=== PATIENT | male | born 1960 | race Caucasian/White ===

== ENCOUNTER → 2017-02-15 | Outpatient (CLI) | payer MEDICARE ==
--- NOTE | 2017-02-15 10:22 | CARD ---
APPROVED REPORT EXAM: Two-dimensional and M-mode echocardiogram with Doppler and color Doppler. Other Information Quality : GoodHR: 105bpm Rhythm : Atrial Fibrillation INDICATION Atrial Fibrillation 2D DIMENSIONS RVDd2.8 (2.9-3.5cm)Left Atrium(2D)4.2 (1.6-4.0cm) IVSd0.9 (0.7-1.1cm)Aortic Root(2D)2.6 (2.0-3.7cm) LVDd4.3 (3.9-5.9cm)LVOT Diameter2.4 (1.8-2.4cm) PWd0.9 (0.7-1.1cm)LVDs3.5 (2.5-4.0cm) FS (%) 18.3 %SV31.8 ml LVEF(%)38.2 (>50%) Aortic Valve LVOT Peak Trevon.66.1cm/s Mitral Valve MV E Peak Gr.4mmHgMV E Mean Gr.1mmHg Pulmonary Valve PV Peak Fggxwaek34.0cm/s Tricuspid Valve TR P. Rsomarrz917uk/sTR Peak Gr.31mmHg Pulmonary Vein S1 Fulkbiix77.1cm/s LEFT VENTRICLE The left ventricle is normal size. There is normal left ventricular wall thickness. Left ventricle sy stolic function is mildly impaired. The Ejection Fraction is 40-45%. There is mild global hypokinesis of the left ventricle. Tissue Doppler imaging reveals moderate left ventricular diastolic dysfunctio n. No left ventricle thrombus noted on this study. RIGHT VENTRICLE The right ventricle is normal size. There is normal right ventricular wall thickness. The right ventr icular systolic function is normal. ATRIA The left atrium is mildly dilated. The right atrium size is normal. The interatrial septum is intact with no evidence for an atrial septal defect or patent foramen ovale as noted on 2-D or Doppler imagi ng. AORTIC VALVE The aortic valve is mildly thickened. The aortic valve is trileaflet. Doppler and Color Flow revealed no significant aortic regurgitation. There is no significant aortic valvular stenosis. MITRAL VALVE Mitral annular calcification is mild. The mitral valve leaflets are thickened. There is no evidence o f mitral valve prolapse. There is no mitral valve stenosis. Doppler and Color Flow revealed mild mitr al regurgitation. TRICUSPID VALVE Doppler and Color Flow revealed mild tricuspid regurgitation. The pulmonary artery systolic pressure is estimated at 34 mmHg. There is mild pulmonary hypertension. PULMONIC VALVE Doppler and Color Flow revealed trace pulmonic valvular regurgitation. There is no pulmonic valvular stenosis. GREAT VESSELS The aortic root is normal in size. The ascending aorta is normal in size. The IVC is normal in size a nd collapses >50% with inspiration. PERICARDIAL EFFUSION There is no evidence of significant pericardial effusion. Critical Notification Critical Value: No <Conclusion> Left ventricle systolic function is mildly impaired. The Ejection Fraction is 40-45%. (Due to atrial fibrillation, this may be underestimated.) There is mild global hypokinesis of the left ventricle. Tissue Doppler imaging reveals moderate left ventricular diastolic dysfunction.
== END | disposition home or self-care (01) ==
LOC: ECHO 07:39
PROVIDERS: ATTEND Internal Medicine Cardiovascular Disease
DX: I48.91 Unspecified atrial fibrillation (principal); I34.0 Nonrheumatic mitral (valve) insufficiency; I27.2 Other secondary pulmonary hypertension; I07.1 Rheumatic tricuspid insufficiency
CPT/HCPCS: 93306

== ENCOUNTER 2017-03-13 09:28 | Day surgery (SDC) | payer MEDICARE ==
[~2017-03-13 09:28] MED LIST: 0.9 % SODIUM CHLORIDE 10 ML DISP.SYRIN. IV PRN; IV RINGERS,LACTATED 1000ML 1,000 ML IV SCH
[2017-03-13] MEDS ORDERED: SIMV40TA3 PO (10:51)
[2017-03-13] MEDS ORDERED: METO50TA2 PO (10:51)
[2017-03-13] MEDS ORDERED: CLON0.5T3 PO (10:51)
[2017-03-13] MEDS ORDERED: RIVA20TA2 PO (10:51)
[2017-03-13] MEDS ORDERED: HYDR-2666 PO (10:51)
--- NOTE | 2017-03-13 10:58 | EKG ---
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
[2017-03-13 11:11] LABS: CALCIUM 8.5 mg/dL (8.5-10.1); CREATININE 1.2 mg/dL (0.7-1.3); GFR 62.4; MAGNESIUM 2.1 mg/dL (1.8-2.4); POTASSIUM 4.2 mmol/L (3.5-5.1)
[2017-03-13] MEDS ORDERED: PROPOFOL 20 ML IV ONE (11:53)
--- NOTE | 2017-03-13 12:32 | EKG ---
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
[2017-03-13 13:00] VITALS: BP 112/79
--- NOTE | 2017-03-13 13:57 | PDOC4 ---
Operative Note Operative Note Cardioversion report. The patient is a 56-year-old male who was found to be in atrial fibrillation. He was initially started on beta blockers for rate control. He has been anticoagulated for more than one month. Lab testing including potassium and magnesium are within normal limits. Echocardiogram shows normal LV systolic function with mild mitral regurgitation and mild tricuspid regurgitation. Patient was seen in the office and we discussed the risks and benefits of cardioversion. The patient gave consent to an outpatient cardioversion attempt. Again this morning this was discussed the patient has agreed to proceed. The anesthesiology service provided sedation. Once the patient's appropriate level of consciousness obtained the patient was cardioverted with synchronized 250 J which converted his atrial fibrillation to a normal sinus rhythm. He awoke normally from the anesthetic. Results were discussed with the patient and his family. He'll be continued on his present medications including anticoagulation and followed up in the office in 3-4 weeks. Conclusions. Successful electrical cardioversion of atrial fibrillation to a normal sinus rhythm. BROOKLYN PAUL MD Mar 13, 2017 13:57
== END 2017-03-13 13:12 | disposition home or self-care (01) ==
LOC: SURG 09:28
PROVIDERS: ATTEND Internal Medicine Cardiovascular Disease
DX: I48.91 Unspecified atrial fibrillation (principal); I34.0 Nonrheumatic mitral (valve) insufficiency; I07.1 Rheumatic tricuspid insufficiency; E78.00 Pure hypercholesterolemia, unspecified; F41.9 Anxiety disorder, unspecified; F32.9 Major depressive disorder, single episode, unspecified
CPT/HCPCS: 36415; 80048; 83735; 92960; 93005; J2704

== ENCOUNTER → 2017-04-09 | Outpatient (CLI) | payer MEDICARE ==
[2017-03-13 13:00] VITALS: BP 112/79
[~2017-04-09] MED LIST changes: -0.9 % SODIUM CHLORIDE 10 ML DISP.SYRIN. IV PRN; +CLON0.5T3 PO; +HYDR-2666 PO; -IV RINGERS,LACTATED 1000ML 1,000 ML IV SCH; +METO50TA2 PO; +REGADENOSON 0.4 MG/5 ML DISP.SYRIN. IV ONE; +RIVA20TA2 PO; +SIMV40TA3 PO
--- NOTE | 2017-04-09 11:47 | RAD ---
APPROVED REPORT Test Type: Pharmacological Stress Nurse/Tech: Anne Marie Riojas RN Test Indications: Afib Cardiac History: see ehr Medications: see ehr Medical History: see ehr Resting ECG: Afib Resting Heart Rate: 111 bpm Resting Blood Pressure: 106/60mmHg Pretest Chest Pain: None Nurse/Tech Notes Lungs CTA, S1, S2 Consent: The procedure was explained to the patient in lay terms. Informed consent was witnessed. Pedro eout was entered into [employer]. History and Stress Test performed by Koby LeblancNJaime Pharm. Details Pharmacologic stress testing was performed using 0.4mg per 5ml of regadenoson given intravenously ove r 7-10 seconds. Stress Symptoms No chest pain or symptoms. Patient went into an Afib RVR with a drop in blood pressure. Lowest 62/3 6. Patient did not complain of dizziness and did not lose consciousness. Dr. Barros informed, ord ers to proceed with stress test protocol. POST EXERCISE Reason for Termination: Infusion complete Max HR: 180 bpm Max Blood Pressure: 119/70mmHg Blood Pressure response to exercise: Abnormal blood pressure response during stress. Chest Pain: No. Arrhythmia: No. ST Change: No. INTERPRETATION Stress EKG Conclusion: The resting EKG showed a atrial fibrillation rate [address] segm ent changes. With infusion the patient's heart rate increased to greater than 160 bpm but no further ST segment ch anges were identified. The patient became significantly tachycardic with infusion but no EKG evidence of stress-induced isch emia. Imaging Protocol IMAGE PROTOCOL: Rest Tc-99m/stress Tc-99m 1 day Rest: Stress: Viability: Radiopharm.Tc99m YgpkxxkewTw43d Sestamibi Dose11.6mCi 33.6mCi Duration 15min. 10min. Img Date 04/09/2017 04/09/2017 Inj-Img Qkyc12hcq. 45min. Rest Admin Site:IV - Left AntecubitalAdministrator:MEHUL Valencia, ARRT (R)(N) Stress Admin Site: IV - Left AntecubitalAdministrator: MEHUL Valencia, ARRT (R)(N) STRESS DATA End Diast. Vol.100.0mlAv. Heart Lvcz239.0bpm End Syst. Vol.41.0mlCO Index BSA0.0L/min Myocardial Lodn531.0gEject. Jkdmqjcl61.0% Stress Rates Pk. Fill Rate4.30EDV/secLVtime Pk. Fill 70.56msec Pk. Empty Rate4.03ESV/secLVtime Pk. Nxsxn913.27msec 1/3 Pk. Fill2.50EDV/sec Stress Scores Regional WT2.00Summed WT28.00 Regional WM0.00Summed WM11.00 LV Perfusion The stress images had a very mild anterior septal defect. The rest images had no significant defects. Nuclear images suggest a possible small area of reversible ischemia in the anterior septal region. Wall Motion Left ventricular systolic function is normal with an ejection fraction of 59%. LV Perf. Quant 17 Seg. SSS0.00 17 Seg. SRS0.00 17 Seg. SDS0.00 Stress Defect Extent (% LAD)1.90Rest Defect Extent (% LAD)0.00Rev. Defect Extent (% LAD)0.00 Stress Defect Extent (% LCX) 0.00Rest Defect Extent (% LCX)0.00Rev. Defect Extent (% LCX)0.00 Stress Defect Extent (% RCA)0.00Rest Defect Extent (% RCA)0.00Rev. Defect Extent (% RCA)0.00 Stress Defect Extent (% ANGEL)0.70Rest Defect Extent (% ANGEL)0.00Rev. Defect Extent (% ANGEL)0.00 Conclusion 1. Significant tachycardia induced by Lexiscan infusion. 2. No ST segment changes on EKG with stress. 3. Nuclear imaging shows a possible small anterior septal region of reversible ischemia. 4. Normal left ventricular systolic function with ejection fraction of 59%. 5. Moderate risk Lexiscan nuclear stress test with a probable small anterior septal area of ischemia.
== END | disposition home or self-care (01) ==
LOC: NM 07:45
PROVIDERS: ATTEND Internal Medicine Cardiovascular Disease
DX: I48.91 Unspecified atrial fibrillation (principal)
CPT/HCPCS: 78452; 93017; 96374; 96375; 96376; A9500; J2785

== ENCOUNTER 2017-07-12 06:13 | Outpatient (CLI) | payer MEDICARE ==
[2017-07-12] VITALS (9 sets, daily range): BP systolic 94–110; BP diastolic 64–84
[~2017-07-12] VITALS: Ht 182.9 cm; Wt 105.2 kg
[~2017-07-12 06:13] MED LIST changes: -HYDR-2666 PO; +HYDR-2758 PO; -REGADENOSON 0.4 MG/5 ML DISP.SYRIN. IV ONE
[2017-07-12] MEDS ORDERED: LIDOCAINE 2% 20 ML VIAL. ONE (07:14)
[2017-07-12 07:28] LABS: HEMATOCRIT 43.7 % (39.0-53.0); HEMOGLOBIN 14.6 g/dL (13.0-17.5); RED BLOOD COUNT 4.72 x10^6/uL (4.30-5.70); RED CELL DISTRIBUTION WIDTH 13.5 % (11.5-14.5); WHITE BLOOD COUNT 7.3 x10^3/uL (4.0-11.0)
[2017-07-12 07:38] LABS: INR 1.4 (0.8-1.1); PROTHROMBIN TIME PATIENT 16.5 SEC (11.7-14.0)
[2017-07-12 07:50] LABS: CALCIUM 8.3 mg/dL (8.5-10.1); CREATININE 1.2 mg/dL (0.7-1.3); GFR 62.4; POTASSIUM 3.8 mmol/L (3.5-5.1)
[2017-07-12] MEDS ORDERED: IODIXANOL 320 MG/ML 100 ML VIAL. ONE (08:34)
--- NOTE | 2017-07-12 08:35 | PDOC ---
MODERATE SEDATION ASSESSMENT RISKS/ALTERNATIVES Risks/Alternatives Risks and alternatives of this type of sedation and procedure discussed with: RISK/ALTERNATIVES: Patient H & P ON CHART H & P H & P on chart and reviewed for co-morbid conditions and appropriate labs. H&P ON CHART: Yes STATUS PREG STATUS ASSESSED: N/A MEDS/ALLERGIES REVIEWED Meds/Allergies Reviewed Medications and Allergies including time and route of recently administered narcotics and sedatives. MEDS/ALLERGIES REVIEWED: Yes ASA RATING ASA RATING: II AIRWAY ASSESSMENT Airway Assessment Airway patency, oral function limitations, presence of caps, crowns, dentures, partials, and ability to extend neck assessed. AIRWAY ASSESSMENT: Yes MALLAMPATI SCORE MALLAMPATI SCORE: II PRE-SEDATION ASSESSMENT PRE-SEDATION ASSESSMENT: Yes BROOKLYN PAUL MD Jul 12, 2017 08:35
[2017-07-12] MEDS ORDERED: NITROGLYCERIN 200 MCG/2 ML SYRINGE FOR CATH/VASC LAB. ONE (08:44)
[2017-07-12] MEDS ORDERED: VERAPAMIL 5 MG/2 ML VIAL. ONE (08:44)
[2017-07-12] MEDS ORDERED: MIDAZOLAM HCL/PF 2 MG/2 ML VIAL. ONE ×2 (08:44→08:49)
[2017-07-12] MEDS ORDERED: HEPARIN for IV BOLUS 10,000 UNIT/10 ML VIAL. ONE (08:44)
[2017-07-12] MEDS ORDERED: fentaNYL PF VIAL 100 MCG/2 ML VIAL ONE (08:44)
[2017-07-12] MEDS ORDERED: IODIXANOL 320 MG/ML 100 ML VIAL. IART ONE ×2 (09:00→11:15)
[2017-07-12] MEDS ORDERED: fentaNYL PF VIAL 100 MCG/2 ML VIAL IV ONE (09:00)
[2017-07-12] MEDS ORDERED: HEPARIN for IV BOLUS 10,000 UNIT/10 ML VIAL. IART ONE (09:00)
[2017-07-12] MEDS ORDERED: LIDOCAINE 2% 20 ML VIAL. IJ ONE ×2 (09:00→11:15)
[2017-07-12] MEDS ORDERED: MIDAZOLAM HCL/PF 2 MG/2 ML VIAL. IV ONE ×2 (09:00→11:15)
[2017-07-12] MEDS ORDERED: VERAPAMIL 5 MG/2 ML VIAL. IART ONE (09:00)
[2017-07-12] MEDS ORDERED: NITROGLYCERIN 200 MCG/2 ML SYRINGE FOR CATH/VASC LAB. IART ONE (09:00)
[2017-07-12] MEDS ORDERED: HYDROcodone/APAP 5/325MG 1 TAB TABLET PO PRN (10:00)
[2017-07-12] MEDS ORDERED: NITROGLYCERIN SUBLINGUAL 0.4 MG BOTTLE OF 25. SL PRN (10:00)
[2017-07-12] MEDS ORDERED: 0.9 % SODIUM CHLORIDE 10 ML DISP.SYRIN. IV PRN (10:00)
[2017-07-12] MEDS ORDERED: IV NORMAL SALINE 1000ML BAG 1,000 ML IV SCH (10:30)
[2017-07-12] MEDS ORDERED: MIDAZOLAM HCL/PF 5 MG/5 ML VIAL. IV ONE (11:15)
--- NOTE | 2017-07-12 13:03 | CARD ---
APPROVED REPORT Procedures. Selective coronary angiogram. Left heart catheterization. The patient is a 56-year-old male with a history of atrial fibrillation. He developed chest discomfor t and a stress test showed reversible ischemia. Cardiac catheterization was recommended. Risks and be nefits were discussed with the patient. He agreed to proceed with testing. After informed consent was obtained the patient was brought to the heart catheterization lab. The are a of the right radial artery was prepared in the usual manner with Betadine, sterile draping and loc al anesthetic after a normal Nav's test. A quick catheter was used to enter the right radial artery , a wire placed and a 5 Brazilian sheath placed over the wire. The usual mixture of anti-spasm medicatio ns and heparin was administered through the sheath. An exchange length wire was placed to the ascendi ng aorta. A 5 Brazilian JL 3.5 diagnostic catheter was advanced and used to engage the left coronary sys tem. Sequential injections in various views were obtained. Over the exchange wire, a 5 Brazilian JR4 di agnostic catheter was used to attempt to engage the right coronary. Would not engage the right torres ry artery. It did cross the aortic valve and left ventricular pressures were obtained. Pullback press ures were measured. A 5 Brazilian Tal right diagnostic catheter was then used to engage the right s ystem. Sequential injections in various views were obtained. The catheter and wire were removed from the patient. The sheath was removed and sealed with a hemostatic band. The patient was moved to the [facility] in stable condition. Findings. Hemodynamics. Left ventricular pressure 106/14, aortic root pressure 104/78. Coronaries. Left main. The left main was a normal size vessel with no lesions. Left anterior descending. The LAD was a moderate size vessel. It had normal distribution. Has minimal proximal disease of less than 10%. Left circumflex. A left circumflex was a dominant vessel. It had no lesions. Right coronary artery. The right coronary was a moderate size vessel. It mild proximal disease of 10% . <Conclusion> Minimal coronary artery disease with no lesions greater than 10%.
== END 2017-07-12 12:20 | disposition home or self-care (01) ==
LOC: CCL 06:13
PROVIDERS: ATTEND Internal Medicine Cardiovascular Disease
DX: I25.10 Atherosclerotic heart disease of native coronary artery without angina pectoris (principal); E78.00 Pure hypercholesterolemia, unspecified; I48.91 Unspecified atrial fibrillation; K21.9 Gastro-esophageal reflux disease without esophagitis; F41.9 Anxiety disorder, unspecified; F32.9 Major depressive disorder, single episode, unspecified; Z86.69 Personal history of other diseases of the nervous system and sense organs; Z72.89 Other problems related to lifestyle
CPT/HCPCS: 36415; 80048; 85027; 85610; 85730; 93458; 99152; 99153; C1769; C1892; J1644; J2250; J3010; J3490; J2001

== ENCOUNTER → 2019-01-14 | Outpatient (CLI) | payer MEDICARE ==
[2017-07-12 11:55] VITALS: BP 98/67
[~2019-01-14] MED LIST changes: +CLON0.5T11 PO; -CLON0.5T3 PO; -HYDR-2758 PO; +HYDR-2761 PO; +LORA10TA68 PO; -METO50TA2 PO; +METO50TA6 PO; +SIMV40TA PO
--- NOTE | 2019-01-14 09:39 | CARD ---
MR#: [id number] Date of Study: 01/14/2019 Ordering Physician: BROOKLYN PAUL, Referring Physician: BROOKLYN PAUL, Tech: Arleth Riley VERÓNICA APPROVED REPORT EXAM: Two-dimensional and M-mode echocardiogram with Doppler and color Doppler. Other Information Quality : Technically LimitedHR: 95bpm Rhythm : Atrial FibrillationTechnically limited study due to body habitus. INDICATION Atrial Fibrillation 2D DIMENSIONS RVDd3.5 (2.9-3.5cm)Left Atrium(2D)4.6 (1.6-4.0cm) IVSd1.1 (0.7-1.1cm)Aortic Root(2D)3.3 (2.0-3.7cm) LVDd5.5 (3.9-5.9cm)LVOT Diameter2.3 (1.8-2.4cm) PWd1.3 (0.7-1.1cm)LVDs3.9 (2.5-4.0cm) FS (%) 28.0 %SV78.0 ml LVEF(%)52.7 (>50%) M-Mode DIMENSIONS Left Atrium(MM)4.74 (2.5-4.0cm)Aortic Root3.90 (2.2-3.7cm) Aortic Valve AoV Peak Trevon.85.9cm/sAoV VTI14.1cm AO Peak GR.3.0mmHgLVOT Peak Trevon.65.2cm/s AO Mean GR.1mmHgAVA (VMAX)3.26cm2 RITIKA (VTI)3.20cm2 Mitral Valve MV E Lavtymok261.9cm/sMV E Peak Gr.101mmHg MV DECEL [id number] A Xwjalmhi40.7cm/s MV E Mean Gr.1mmHgE/A Ratio5.7 MV A Lqcnzmvq813bx Pulmonary Valve PV Peak Nigdyhfe01.3cm/s Tricuspid Valve TR P. Hwxfmwip100gd/sRAP CZJGJGTT7ulRg TR Peak Gr.08htOrEOQF41saAd LEFT VENTRICLE The left ventricle is normal size. There is mild concentric left ventricular hypertrophy. Left ventri gerard systolic function is mildly diminished. The Ejection Fraction is 45%. RIGHT VENTRICLE The right ventricle is borderline dilated. There is normal right ventricular wall thickness. Systolic function is mildly reduced. ATRIA The left atrium is moderately dilated. The right atrium is mildly dilated. The interatrial septum is intact with no evidence for an atrial septal defect or patent foramen ovale as noted on 2-D or Dopple r imaging. AORTIC VALVE The aortic valve is thickened but opens well. The aortic valve is trileaflet. Doppler and Color Flow revealed no significant aortic regurgitation. There is no significant aortic valvular stenosis. MITRAL VALVE The mitral valve is thickened but opens well. There is no evidence of mitral valve prolapse. There is no mitral valve stenosis. Doppler and Color-flow revealed moderate mitral regurgitation. TRICUSPID VALVE The tricuspid valve is normal in structure and function. Doppler and Color Flow revealed mild to mode rate tricuspid regurgitation. There is mild pulmonary hypertension. The PA pressure was estimated at 37 mmHg. There is no tricuspid valve prolapse or vegetation. PULMONIC VALVE Pulmonic valve not well visualized. GREAT VESSELS The aortic root is mildly enlarged. The ascending aorta is normal in size. PERICARDIAL EFFUSION There is no evidence of significant pericardial effusion. Critical Notification Critical Value: No <Conclusion> Left ventricle systolic function is mildly diminished. The Ejection Fraction is 45%. The left atrium is moderately dilated. Moderate mitral regurgitation. Mild to moderate tricuspid regurgitation. There is mild pulmonary hypertension. The PA pressure was estimated at 37 mmHg. There is no evidence of significant pericardial effusion. Signed by : Wily Barros, Electronically Approved : 01/14/2019 09:38:45
== END | disposition home or self-care (01) ==
LOC: ECHO 07:34
PROVIDERS: ATTEND Internal Medicine Cardiovascular Disease
DX: I08.1 Rheumatic disorders of both mitral and tricuspid valves (principal); I48.91 Unspecified atrial fibrillation
CPT/HCPCS: 93306

== ENCOUNTER 2019-02-11 09:32 | Day surgery (SDC) | payer MEDICARE ==
[~2019-02-11 09:32] MED LIST changes: +HYDROmorphone 2 MG/ML VIAL IV PRN; +IV RINGERS,LACTATED 1000ML 1,000 ML IV SCH; +LIDOCAINE 1% PF 2 ML VIAL. ID PRN; +MORPHINE SULFATE 2 MG/ML VIAL. IV PRN; +ONDANSETRON PF 4 MG/2 ML VIAL. IV PRN; +PROCHLORPERAZINE 10 MG/2 ML VIAL. IV PRN; +fentaNYL PF VIAL 100 MCG/2 ML VIAL IV PRN
--- NOTE | 2019-02-11 10:14 | EKG ---
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
[2019-02-11 11:52] LABS: HEMOGLOBIN 14.5 g/dL (13.0-17.5); RED BLOOD COUNT 4.85 x10^6/uL (4.30-5.70); RED CELL DISTRIBUTION WIDTH 13.9 % (11.5-14.5); WHITE BLOOD COUNT 7.2 x10^3/uL (4.0-11.0)
[2019-02-11 12:09] LABS: CALCIUM 8.3 mg/dL (8.5-10.1); CREATININE 1.3 mg/dL (0.7-1.3); GFR 56.5; POTASSIUM 4.6 mmol/L (3.5-5.1)
[2019-02-11 12:19] LABS: DIRECT BILIRUBIN 0.2 mg/dL (0.0-0.2); TOTAL BILIRUBIN 0.8 mg/dL (0.2-1.0); TOTAL PROTEIN 6.2 g/dL (6.4-8.2)
[2019-02-11 12:21] LABS: CHOLESTEROL/HDL RATIO 3.6
[2019-02-11] MEDS ORDERED: LIDOCAINE 2% PF 5 ML VIAL. ONE (12:35)
[2019-02-11] MEDS ORDERED: PROPOFOL 20 ML IV ONE (12:35)
--- NOTE | 2019-02-11 12:54 | EKG ---
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
[2019-02-11 13:25] VITALS: BP 113/75
--- NOTE | 2019-02-11 17:38 | PDOC4 ---
PROCEDURE Procedure Procedure note. The patient is a 58-year-old male with a history of atrial fibrillation. He has been anticoagulated for several months. He was seen by the EP service and started on Multaq. He was scheduled for attempted electrical cardioversion of atrial fibrillation to sinus rhythm today as an outpatient. He has been compliant with his medications. Labs were within normal limits. Risks and benefits were discussed with the patient. He agreed to proceed. The anesthesiology service provided sedation. When appropriately sedated the patient was cardioverted with 200 J of synchronized energy to a normal sinus rhythm. He awoke normally from his sedation. He remained in sinus rhythm. Conclusions. Successful cardioversion of atrial fibrillation to a normal sinus rhythm. BROOKLYN PAUL MD Feb 11, 2019 17:38
== END 2019-02-11 13:32 | disposition home or self-care (01) ==
LOC: SURG 09:32
PROVIDERS: ATTEND Internal Medicine Cardiovascular Disease
DX: I48.91 Unspecified atrial fibrillation (principal); I10 Essential (primary) hypertension; I25.10 Atherosclerotic heart disease of native coronary artery without angina pectoris; F41.9 Anxiety disorder, unspecified; E78.5 Hyperlipidemia, unspecified; Z98.890 Other specified postprocedural states; Z79.899 Other long term (current) drug therapy; G62.89 Other specified polyneuropathies; Z82.49 Family history of ischemic heart disease and other diseases of the circulatory system; Z72.89 Other problems related to lifestyle
CPT/HCPCS: 36415; 80048; 80061; 80076; 85027; 92960; 93005; J2001; J2704

== ENCOUNTER → 2019-04-15 | Outpatient (CLI) | payer OTHER ==
[~2019-04-15] MED LIST changes: +ALBUTEROL SULFATE 2.5 MG/3 ML NEBU. NEB ONE; -HYDROmorphone 2 MG/ML VIAL IV PRN; -IV RINGERS,LACTATED 1000ML 1,000 ML IV SCH; -LIDOCAINE 1% PF 2 ML VIAL. ID PRN; -MORPHINE SULFATE 2 MG/ML VIAL. IV PRN; -ONDANSETRON PF 4 MG/2 ML VIAL. IV PRN; -PROCHLORPERAZINE 10 MG/2 ML VIAL. IV PRN; -fentaNYL PF VIAL 100 MCG/2 ML VIAL IV PRN
== END | disposition home or self-care (01) ==
LOC: PF 09:27
PROVIDERS: ATTEND Family Medicine
DX: J98.4 Other disorders of lung (principal); R06.02 Shortness of breath
CPT/HCPCS: 94060; J7613

== ENCOUNTER 2019-07-17 10:18 | Day surgery (SDC) | payer MEDICARE, OTHER ==
[~2019-07-17 10:18] MED LIST changes: -ALBUTEROL SULFATE 2.5 MG/3 ML NEBU. NEB ONE; +BENZOCAINE ONE 20% MUCOSAL SPRAY. MM; +CLON-77 PO; -CLON0.5T11 PO; +DRON400T PO; +HYDROmorphone 2 MG/ML VIAL IV PRN; +IV RINGERS,LACTATED 1000ML 1,000 ML IV SCH; +LIDOCAINE 2% VISCOUS 15 ML SOLUTION. SWSW ONE; +MORPHINE SULFATE 2 MG/ML VIAL. IV PRN; +fentaNYL PF VIAL 100 MCG/2 ML VIAL IV PRN
[2019-07-17] MEDS ORDERED: LIDOCAINE 2% PF 5 ML VIAL. ONE (10:51)
[2019-07-17] MEDS ORDERED: PROPOFOL 20 ML IV ONE (10:51)
[2019-07-17] MEDS ORDERED: LIDOCAINE 2% TOPICAL JELLY 30GM TUBE. TP ONE ×2 (11:05→11:30)
[2019-07-17 11:20] LABS: HEMATOCRIT 47.1 % (39.0-53.0); HEMOGLOBIN 15.7 g/dL (13.0-17.5); RED BLOOD COUNT 5.06 x10^6/uL (4.30-5.70); RED CELL DISTRIBUTION WIDTH 14.2 % (11.5-14.5); WHITE BLOOD COUNT 6.8 x10^3/uL (4.0-11.0)
--- NOTE | 2019-07-17 11:32 | EKG ---
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
[2019-07-17 12:05] LABS: CALCIUM 8.5 mg/dL (8.5-10.1); CREATININE 1.2 mg/dL (0.7-1.3); POTASSIUM 4.4 mmol/L (3.5-5.1)
[2019-07-17 12:52] VITALS: BP 116/65
--- NOTE | 2019-07-20 11:14 | CARD ---
MR#: [id number] Date of Study: 07/17/2019 Ordering Physician: BROOKLYN CHOUDHURY, Referring Physician: Dia HERNANDEZ: Nicole Teague RDCS APPROVED REPORT EXAM: Transesophageal echocardiogram with color flow Doppler. INDICATION Pre-Op Ablation PROCEDURE After obtaining informed consent, patient underwent transesophageal echo in the PACU. Type of Sedation : General Anesthesia Sedation was administered by Darshan Feldman CRNA. Sedation was achieved with Propofol 190 mg intravenously. Transesophageal probe was inserted and advanced into esophagus by Brooklyn Choudhury MD. The YOLA was performed without complications. Throughout the procedure, the blood pressure, pulse oximetry, cardiac rhythm, and rate were monitored . The patient tolerated the procedure without adverse effects. Recovery from general anesthesia was une ventful and vital signs were stable. LEFT VENTRICLE The left ventricle is normal size. There is normal left ventricular wall thickness. Left ventricle sy stolic function normal. The Ejection Fraction is 50-55%. There is normal LV segmental wall motion. RIGHT VENTRICLE The right ventricle is normal size. The right ventricular systolic function is normal. ATRIA The left atrium is moderately dilated. The right atrium is mildly dilated. The interatrial septum is intact with no evidence for an atrial septal defect or patent foramen ovale as noted on 2-D or Dopple r imaging. There is no thrombus noted in the left atrial appendage. AORTIC VALVE The aortic valve is calcified but opens well. Doppler and Color Flow revealed no significant aortic r egurgitation. There is no significant aortic valvular stenosis. MITRAL VALVE The mitral valve is normal in structure and function. There is no evidence of mitral valve prolapse. There is no mitral valve stenosis. Doppler and Color-flow revealed moderate mitral regurgitation. TRICUSPID VALVE The tricuspid valve is normal in structure and function. Doppler and Color Flow revealed mild tricusp id regurgitation. There is no tricuspid valve stenosis. PULMONIC VALVE The pulmonic valve is not well visualized. Doppler and Color Flow revealed trace pulmonic valvular re gurgitation. There is no pulmonic valvular stenosis. GREAT VESSELS The aortic root is normal in size. The ascending aorta is normal in size. Critical Notification Critical Value: No <Conclusion> The left ventricle is normal size. Left ventricle systolic function normal. The Ejection Fraction is 50-55%. The left atrium is moderately dilated. The interatrial septum is intact with no evidence for an atrial septal defect or patent foramen ovale as noted on 2-D or Doppler imaging. There is no thrombus noted in the left atrial appendage. There is no significant aortic valvular stenosis. Doppler and Color Flow revealed no significant aortic regurgitation. Doppler and Color-flow revealed moderate mitral regurgitation. Doppler and Color Flow revealed mild tricuspid regurgitation. Signed by : Brooklyn Choudhury MD Electronically Approved : 07/20/2019 11:13:53
== END 2019-07-17 13:26 | disposition home or self-care (01) ==
LOC: SURG 10:18
PROVIDERS: ATTEND Internal Medicine Cardiovascular Disease
DX: I08.1 Rheumatic disorders of both mitral and tricuspid valves (principal); I48.91 Unspecified atrial fibrillation; I25.10 Atherosclerotic heart disease of native coronary artery without angina pectoris; E78.5 Hyperlipidemia, unspecified; F41.9 Anxiety disorder, unspecified; Z98.890 Other specified postprocedural states; Z72.89 Other problems related to lifestyle
CPT/HCPCS: 36415; 80048; 85027; 93005; 93312; 93325; J2001; J2704

== ENCOUNTER → 2022-03-15 | Outpatient (CLI) | payer MEDICARE ==
[~2022-03-15] MED LIST changes: -BENZOCAINE ONE 20% MUCOSAL SPRAY. MM; -DRON400T PO; +DRON400T6 PO; -HYDROmorphone 2 MG/ML VIAL IV PRN; -IV RINGERS,LACTATED 1000ML 1,000 ML IV SCH; -LIDOCAINE 2% VISCOUS 15 ML SOLUTION. SWSW ONE; -MORPHINE SULFATE 2 MG/ML VIAL. IV PRN; +SIMV40TA18 PO; -SIMV40TA3 PO; -fentaNYL PF VIAL 100 MCG/2 ML VIAL IV PRN
--- NOTE | 2022-03-15 17:35 | CARD ---
MR#: [id number] Date of Study: 03/15/2022 Ordering Physician: BROOKLYN CHOUDHURY, Referring Physician: BROOKLYN CHOUDHURY, Tech: Jorge Luis Pickard [facility] APPROVED REPORT EXAM: Two-dimensional and M-mode echocardiogram with Doppler and color Doppler. Other Information Quality : FairHR: 76bpm Rhythm : NSR INDICATION Atrial Fibrillation Mitral Valve Disease Surgery/Intervention Previous ablation 2D DIMENSIONS Left Atrium(2D)5.0 (1.6-4.0cm)IVSd1.1 (0.7-1.1cm) Aortic Root(2D)3.4 (2.0-3.7cm)LVDd4.8 (3.9-5.9cm) LVOT Diameter2.2 (1.8-2.4cm)PWd1.0 (0.7-1.1cm) LA Cyhamn59 (18-58mL)LVDs3.5 (2.5-4.0cm) FS (%) 27.1 %SV56.1 ml Aortic Valve AoV Peak Trevon.112.4cm/sAoV VTI22.3cm AO Peak GR.5.1mmHgLVOT Peak Trevon.83.6cm/s LVOT VTI 16.88cmAO Mean GR.3mmHg RITIKA (VMAX)1.60gm4ANO (VTI)2.75cm2 Mitral Valve MV E Kihcnkjx93.1cm/sMV DECEL WURQ176xs MV A Gizokocy25.4cm/sMV WKI19bi E/A Ratio1.7MVA (PHT)4.68cm2 TDI E/Lateral E'7.3E/Medial E'9.1 Pulmonary Valve PV Peak Lxviqorq730.8cm/sPV Peak Grad.6mmHg Tricuspid Valve TR P. Nefclzqe531gb/sTR Peak Gr.21mmHg Pulmonary Vein S1 Srdsconk09.3cm/sD2 Tnpsvhce91.4cm/s LEFT VENTRICLE The left ventricle is normal size. There is normal left ventricular wall thickness. The left ventricu lar systolic function is normal. LV ejection fraction of 50 to 55%. There is normal LV segmental wall motion. The left ventricular diastolic function and filling is normal for age. No left ventricle thr ombus noted on this study. There is no ventricular septal defect visualized. There is no left ventric ular aneurysm. There is no mass noted in the left ventricle. RIGHT VENTRICLE The right ventricle is normal size. There is normal right ventricular wall thickness. The right ventr icular systolic function is normal. ATRIA The left atrium is mildly dilated. The right atrium size is normal. The interatrial septum is intact with no evidence for an atrial septal defect or patent foramen ovale as noted on 2-D or Doppler imagi ng. AORTIC VALVE The aortic valve is normal in structure and function. Doppler and Color Flow revealed no significant aortic regurgitation. There is no significant aortic valvular stenosis. There is no aortic valvular v egetation. MITRAL VALVE The mitral valve is thickened but opens well. There is no evidence of mitral valve prolapse. There is no mitral valve stenosis. Doppler and Color-flow revealed mild mitral regurgitation. TRICUSPID VALVE The tricuspid valve is normal in structure and function. Doppler and Color Flow revealed trace tricus pid regurgitation. There is no tricuspid valve prolapse or vegetation. There is no tricuspid valve st enosis. PULMONIC VALVE The pulmonary valve is normal in structure and function. Doppler and Color Flow revealed no pulmonic valvular regurgitation. There is no pulmonic valvular stenosis. GREAT VESSELS The aortic root is normal in size. The ascending aorta is normal in size. The pulmonary artery is nor mal. The IVC is normal in size and collapses >50% with inspiration. PERICARDIAL EFFUSION There is no pleural effusion. There is no evidence of significant pericardial effusion. Critical Notification Critical Value: No <Conclusion> The left ventricle is normal size. The left ventricular systolic function is normal. LV ejection fraction of 50 to 55%. Doppler and Color Flow revealed no significant aortic regurgitation. There is no significant aortic valvular stenosis. Doppler and Color-flow revealed mild mitral regurgitation. Doppler and Color Flow revealed trace tricuspid regurgitation. Signed by : Brooklyn Choudhury MD Electronically Approved : 03/15/2022 17:35:30
== END ==
LOC: ECHO 10:04
PROVIDERS: ATTEND Internal Medicine Cardiovascular Disease
DX: I34.0 Nonrheumatic mitral (valve) insufficiency (principal); I51.9 Heart disease, unspecified
CPT/HCPCS: 93306; C8929